=== PATIENT | male | born 1945 | race Caucasian/White ===

== ENCOUNTER → 2018-08-22 | Outpatient (CLI) | payer MEDICARE, OTHER ==
[~2018-08-22] MED LIST: ALPR0.25 PO; AMIO200T PO; ASPI81TA59 PO; ATOR10TA PO; FURO20TA3 PO; OXYC5TAB3 PO; PANT40TA3 PO; POTA10TA11 PO; WARF1TAB74 PO-COUM
== END | disposition home or self-care (01) ==
LOC: CFH 15:31
PROVIDERS: ATTEND Internal Medicine Cardiovascular Disease
DX: I11.9 Hypertensive heart disease without heart failure (principal); E78.5 Hyperlipidemia, unspecified; I35.8 Other nonrheumatic aortic valve disorders; Z95.2 Presence of prosthetic heart valve
CPT/HCPCS: 93306